=== PATIENT | female | born 1980 | race Caucasian/White ===

== ENCOUNTER 2017-03-08 10:06 | Emergency (ER) | payer BC ==
[~2017-03-08] VITALS: Ht 165.1 cm; Wt 90.3 kg
[~2017-03-08 10:06] MED LIST: PREN-145 OR
[2017-03-08] MEDS ORDERED: SODIUM CHLORIDE 0.9% 1,000 ML IVB ONE (11:20)
[2017-03-08] MEDS ORDERED: PROMETHAZINE HCL 25 MG/ML 1ML IV ONE (11:30)
[2017-03-08 12:27] LABS: Basophils # (auto) 0 uL; Basophils % (auto) 0.6 % (0.0-2.0); Eosinophils # (auto) 0.2 uL; Hematocrit 42.9 % (36.0-46.0); Hemoglobin 14.6 g/dL (12.2-16.2); Lymphocytes % (auto) 26.9 % (10.0-50.0); Mean Corpuscular Hemoglobin 29.7 pg (28.0-32.0); Mean Corpuscular Hgb Conc. 33.9 g/dL (32.0-36.0); Mean Corpuscular Volume 87.5 fL (80.0-100.0); Monocytes # (auto) 0.5 uL; Monocytes % (auto) 6.3 % (0.0-12.0); Neutrophils # (auto) 4.9 uL; Neutrophils % (auto) 64.2 % (37.0-80.0); Nucleated Red Blood Cells % 0.1 %; Platelet Count (auto) 193 10^3/uL (140-450); Red Blood Cells 4.91 10^6/uL (4.0-5.20); Red Cell Distribution Width 13.5 % (11.8-14.3); White Blood Cell 7.6 10^3/uL (4.4-10.8)
[2017-03-08 12:33] LABS: Albumin 3.9 g/dL (3.4-5.0); BUN/Creatinine Ratio 13.6; Potassium 3.7 mmol/L (3.5-5.1)
[2017-03-08 12:36] LABS: Bilirubin, Total 0.6 mg/dL (0.2-1.0); Total Protein 6.9 g/dL (6.4-8.2)
[2017-03-08 13:57] LABS: Urine Bacteria NONE SEEN /hpf (None Seen); Urine Blood Negative /uL (Negative); Urine Hyaline Cast FEW /lpf (0 - 2); Urine Mucus FEW (None Seen); Urine Specific Gravity 1.029 (1.001-1.035); Urine WBC 3 /hpf (0 - 5)
[2017-03-08 15:05] VITALS: BP 135/93
== END 2017-03-08 15:10 | disposition home or self-care (01) ==
LOC: ER 10:06
DX: O21.0 Mild hyperemesis gravidarum (principal); Z88.5 Allergy status to narcotic agent; Z91.018 Allergy to other foods; Z79.899 Other long term (current) drug therapy; Z3A.00 Weeks of gestation of pregnancy not specified
CPT/HCPCS: 36415; 80053; 81001; 84702; 85025; 93005; 94761; 96360; 99285; J7030

== ENCOUNTER → 2017-04-11 | Outpatient (CLI) | payer BC ==
[2017-04-11 12:56] LABS: Basophils # (auto) 0 uL; Basophils % (auto) 0.3 % (0.0-2.0); Eosinophils # (auto) 0.2 uL; Eosinophils % (auto) 1.9 % (0.0-7.0); Hematocrit 43.4 % (36.0-46.0); Hemoglobin 15.1 g/dL (12.2-16.2); Lymphocytes # (auto) 2.2 uL; Lymphocytes % (auto) 26.4 % (10.0-50.0); Mean Corpuscular Hgb Conc. 34.7 g/dL (32.0-36.0); Mean Corpuscular Volume 86.4 fL (80.0-100.0); Monocytes # (auto) 0.5 uL; Monocytes % (auto) 5.7 % (0.0-12.0); Neutrophils # (auto) 5.4 uL; Neutrophils % (auto) 65.7 % (37.0-80.0); Platelet Count (auto) 224 10^3/uL (140-450); Red Blood Cells 5.02 10^6/uL (4.0-5.20); Red Cell Distribution Width 13.8 % (11.8-14.3); White Blood Cell 8.3 10^3/uL (4.4-10.8)
[2017-04-11 13:42] LABS: Alcohol, Urine < 3.0 mg/dL (0-5); Amphetamine Screen, Urine NEGATIVE (NEGATIVE); Barbiturate Scree,Urine NEGATIVE (NEGATIVE); Benzodiazephine Screen, Urine NEGATIVE (NEGATIVE); Cannabinoid Screen, Urine NEGATIVE (NEGATIVE); Cocaine Screen, Urine NEGATIVE (NEGATIVE); Opiate Scree,Urine NEGATIVE (NEGATIVE); Phencyclidine Screen, Urine NEGATIVE (NEGATIVE)
== END | disposition home or self-care (01) ==
LOC: LAB 12:05
PROVIDERS: ATTEND Obstetrics & Gynecology
DX: Z34.80 Encounter for supervision of other normal pregnancy, unspecified trimester (principal); Z20.2 Contact with and (suspected) exposure to infections with a predominantly sexual mode of transmission; Z3A.00 Weeks of gestation of pregnancy not specified
CPT/HCPCS: 36415; 80307; 83036; 84144; 84702; 85025; 86703; 86762; 86850; 86900; 86901; 87086; 87340

== ENCOUNTER → 2017-08-01 | Outpatient (CLI) | payer BC ==
[2017-08-01 12:58] LABS: Basophils # (auto) 0 uL; Basophils % (auto) 0.2 % (0.0-2.0); Eosinophils # (auto) 0.1 uL; Eosinophils % (auto) 1.4 % (0.0-7.0); Hematocrit 38.8 % (36.0-46.0); Hemoglobin 13.3 g/dL (12.2-16.2); Lymphocytes # (auto) 2.2 uL; Lymphocytes % (auto) 22.4 % (10.0-50.0); Mean Corpuscular Hemoglobin 31.2 pg (28.0-32.0); Mean Corpuscular Hgb Conc. 34.2 g/dL (32.0-36.0); Mean Corpuscular Volume 91.3 fL (80.0-100.0); Monocytes # (auto) 0.4 uL; Monocytes % (auto) 4.4 % (0.0-12.0); Neutrophils # (auto) 7.1 uL; Neutrophils % (auto) 71.6 % (37.0-80.0); Platelet Count (auto) 225 10^3/uL (140-450); Red Blood Cells 4.25 10^6/uL (4.0-5.20); Red Cell Distribution Width 13.3 % (11.8-14.3)
== END | disposition home or self-care (01) ==
LOC: LAB 11:40
PROVIDERS: ATTEND Obstetrics & Gynecology
DX: O99.810 Abnormal glucose complicating pregnancy (principal); O23.40 Unspecified infection of urinary tract in pregnancy, unspecified trimester; O09.90 Supervision of high risk pregnancy, unspecified, unspecified trimester; Z3A.00 Weeks of gestation of pregnancy not specified
CPT/HCPCS: 36415; 82951; 85025; 87086

== ENCOUNTER → 2017-10-05 | Outpatient (CLI) | payer BC ==
[~2017-10-05] MED LIST changes: +AMOX250C3 PO; +DOXY10TA OR; +LABE100T PO
[2017-10-05 11:12] LABS: Basophils # (auto) 0 uL; Basophils % (auto) 0.4 % (0.0-2.0); Eosinophils # (auto) 0.3 uL; Eosinophils % (auto) 2.5 % (0.0-7.0); Hemoglobin 12.4 g/dL (12.2-16.2); Lymphocytes # (auto) 2.2 uL; Lymphocytes % (auto) 20.9 % (10.0-50.0); Mean Corpuscular Hemoglobin 31.1 pg (28.0-32.0); Mean Corpuscular Hgb Conc. 34.4 g/dL (32.0-36.0); Mean Corpuscular Volume 90.4 fL (80.0-100.0); Monocytes # (auto) 0.5 uL; Monocytes % (auto) 5.2 % (0.0-12.0); Neutrophils # (auto) 7.3 uL; Platelet Count (auto) 168 10^3/uL (140-450); Red Blood Cells 3.98 10^6/uL (4.0-5.20); Red Cell Distribution Width 13.6 % (11.8-14.3); White Blood Cell 10.3 10^3/uL (4.4-10.8)
[2017-10-06 05:05] LABS: RPR Non Reactive (Non Reactive)
== END | disposition home or self-care (01) ==
LOC: LAB 10:50
PROVIDERS: ATTEND Obstetrics & Gynecology
DX: Z34.83 Encounter for supervision of other normal pregnancy, third trimester (principal); Z3A.37 37 weeks gestation of pregnancy; Z88.5 Allergy status to narcotic agent
CPT/HCPCS: 36415; 85025; 86592; 87081

== ENCOUNTER 2017-10-07 22:38 | Observation (INO) | payer BC ==
[~2017-10-07] VITALS: Ht 170.2 cm; Wt 95.3 kg
[~2017-10-07 22:38] MED LIST changes: -AMOX250C3 PO; -LABE100T PO
[2017-10-08] MEDS ORDERED: AMOX250C3 PO (00:52)
[2017-10-08 00:58] LABS: Basophils # (auto) 0 uL; Basophils % (auto) 0.4 % (0.0-2.0); Eosinophils # (auto) 0.3 uL; Eosinophils % (auto) 2.6 % (0.0-7.0); Hematocrit 34.6 % (36.0-46.0); Hemoglobin 11.6 g/dL (12.2-16.2); Lymphocytes # (auto) 2.9 uL; Lymphocytes % (auto) 25.8 % (10.0-50.0); Mean Corpuscular Hemoglobin 30.4 pg (28.0-32.0); Mean Corpuscular Hgb Conc. 33.6 g/dL (32.0-36.0); Mean Corpuscular Volume 90.5 fL (80.0-100.0); Monocytes # (auto) 0.6 uL; Monocytes % (auto) 5.4 % (0.0-12.0); Neutrophils # (auto) 7.4 uL; Neutrophils % (auto) 65.8 % (37.0-80.0); Platelet Count (auto) 164 10^3/uL (140-450); Red Blood Cells 3.83 10^6/uL (4.0-5.20); White Blood Cell 11.2 10^3/uL (4.4-10.8)
[2017-10-08 01:13] LABS: INR 0.96 (0.9-1.15); Prothrombin Time 10.3 sec (9.27-12.13)
[2017-10-08 01:18] LABS: Albumin 2.5 g/dL (3.4-5.0); BUN/Creatinine Ratio 5.8; Bilirubin, Total 0.3 mg/dL (0.2-1.0); Calcium 7.6 mg/dL (8.5-10.1); Potassium 3.2 mmol/L (3.5-5.1); Total Protein 5.9 g/dL (6.4-8.2); Uric Acid 4.7 mg/dL (2.6-6.0)
[2017-10-08] MEDS ORDERED: LABETALOL HCL 200 MG TAB PO ONE (02:00)
[2017-10-08] MEDS ORDERED: POTASSIUM CHL 20 Meq TABLET PO ONE (02:00)
== END 2017-10-08 03:45 | disposition home or self-care (01) | DRG 782 ==
LOC: LDRP 22:38
PROVIDERS: ADMIT Obstetrics & Gynecology; ATTEND Obstetrics & Gynecology
DX: O13.3 Gestational [pregnancy-induced] hypertension without significant proteinuria, third trimester (principal); O09.523 Supervision of elderly multigravida, third trimester; O62.9 Abnormality of forces of labor, unspecified; Z3A.36 36 weeks gestation of pregnancy
CPT/HCPCS: 36415; 59025; 80053; 81002; 84550; 85025; 85610; 85730; 86850; 86900; 86901; G0378

== ENCOUNTER 2017-10-13 12:20 | Observation (INO) | payer BC ==
[~2017-10-13 12:20] MED LIST changes: +AMOX250C3 PO
[2017-10-13 13:36] LABS: Basophils # (auto) 0 uL; Basophils % (auto) 0.4 % (0.0-2.0); Eosinophils # (auto) 0.4 uL; Eosinophils % (auto) 4.3 % (0.0-7.0); Hematocrit 37.3 % (36.0-46.0); Hemoglobin 12.5 g/dL (12.2-16.2); Lymphocytes # (auto) 2.2 uL; Lymphocytes % (auto) 25.4 % (10.0-50.0); Mean Corpuscular Hemoglobin 30.4 pg (28.0-32.0); Mean Corpuscular Hgb Conc. 33.4 g/dL (32.0-36.0); Mean Corpuscular Volume 90.9 fL (80.0-100.0); Monocytes # (auto) 0.5 uL; Monocytes % (auto) 5.7 % (0.0-12.0); Neutrophils # (auto) 5.6 uL; Neutrophils % (auto) 64.2 % (37.0-80.0); Platelet Count (auto) 184 10^3/uL (140-450); White Blood Cell 8.8 10^3/uL (4.4-10.8)
[2017-10-13 13:52] LABS: INR 0.94 (0.9-1.15); Prothrombin Time 10.1 sec (9.27-12.13)
[2017-10-13 14:01] LABS: Albumin 2.6 g/dL (3.4-5.0); BUN/Creatinine Ratio 8.7; Bilirubin, Total 0.3 mg/dL (0.2-1.0); Calcium 7.6 mg/dL (8.5-10.1); Potassium 3.6 mmol/L (3.5-5.1); Total Protein 6.2 g/dL (6.4-8.2); Uric Acid 4.4 mg/dL (2.6-6.0)
[2017-10-13 14:10] LABS: Urine Bacteria FEW /hpf (None Seen); Urine Blood Negative /uL (Negative); Urine Specific Gravity 1.004 (1.001-1.035); Urine WBC 1 /hpf (0 - 5)
== END 2017-10-13 14:50 | disposition home or self-care (01) | DRG 781 ==
LOC: LDRP 12:20
PROVIDERS: ADMIT Specialist; ATTEND Specialist
DX: O13.3 Gestational [pregnancy-induced] hypertension without significant proteinuria, third trimester (principal); O26.893 Other specified pregnancy related conditions, third trimester; O09.523 Supervision of elderly multigravida, third trimester; R51 Headache; N89.8 Other specified noninflammatory disorders of vagina; Z88.9 Allergy status to unspecified drugs, medicaments and biological substances; Z3A.37 37 weeks gestation of pregnancy
CPT/HCPCS: 36415; 59025; 80053; 81001; 81002; 84550; 85025; 85610; 85730; G0378

== ENCOUNTER 2017-10-15 05:29 | Inpatient (IN) | payer BC ==
[~2017-10-15] VITALS: Ht 170.2 cm; Wt 91.6 kg
[2017-10-15] MEDS ORDERED: LACT. RINGERS/OXYTOCIN 20UNITS 1,000 ML IV SCH (05:46)
[2017-10-15] MEDS ORDERED: DERMOPLAST 60ML BOTTLE TOP PRN (06:00)
[2017-10-15] MEDS ORDERED: NALBUPHINE HCL 10 MG/1ml INJECTION IV PRN (06:00)
[2017-10-15] MEDS ORDERED: LIDOCAINE 2% (LOCAL ANESTH.) PF 5ml SDV ID ONE (06:00)
[2017-10-15] MEDS ORDERED: CARBOPROST TROMETHAMINE 250 MCG/1ML VIAL IM PRN (06:00)
[2017-10-15] MEDS ORDERED: PENICILLIN G POT 5MILLION UNIT VIAL ONE (06:00)
[2017-10-15] MEDS ORDERED: PHISODERM TOP SOLN 240ML BTL TOP PRN (06:00)
[2017-10-15] MEDS ORDERED: WITCH HAZEL-GLYCERIN PAD TOP PRN (06:00)
[2017-10-15] MEDS ORDERED: METHYLERGONOVINE MALEATE 0.2 MG/ML AMP IM PRN (06:00)
[2017-10-15] MEDS ORDERED: PENICILLIN G POT 5MIL/D5 50ML 50 ML IV ONE ×2 (06:02→06:30)
[2017-10-15] MEDS ORDERED: LABE100T PO (06:03)
[2017-10-15 06:40] LABS: Basophils # (auto) 0 uL; Basophils % (auto) 0.4 % (0.0-2.0); Eosinophils # (auto) 0.3 uL; Eosinophils % (auto) 2.9 % (0.0-7.0); Hematocrit 35.3 % (36.0-46.0); Hemoglobin 12.1 g/dL (12.2-16.2); Lymphocytes # (auto) 2.6 uL; Lymphocytes % (auto) 24.8 % (10.0-50.0); Mean Corpuscular Hemoglobin 31.2 pg (28.0-32.0); Mean Corpuscular Hgb Conc. 34.3 g/dL (32.0-36.0); Monocytes # (auto) 0.6 uL; Monocytes % (auto) 5.6 % (0.0-12.0); Neutrophils # (auto) 7.1 uL; Neutrophils % (auto) 66.3 % (37.0-80.0); Platelet Count (auto) 185 10^3/uL (140-450); Red Blood Cells 3.88 10^6/uL (4.0-5.20); Red Cell Distribution Width 14.1 % (11.8-14.3); White Blood Cell 10.6 10^3/uL (4.4-10.8)
[2017-10-15] MEDS ORDERED: DIPHENOXYLATE W/ATROPINE 2.5 MG TAB PO PRN (06:45)
[2017-10-15] MEDS ORDERED: ONDANSETRON HCL 4 MG/2 ML VIAL IV PRN (06:45)
[2017-10-15 06:52] LABS: INR 0.93 (0.9-1.15); Partial Thromboplastin Time 25.4 sec (23.78-33.04)
[2017-10-15 06:58] LABS: Urine Bacteria NONE SEEN /hpf (None Seen); Urine Blood Negative /uL (Negative); Urine Specific Gravity 1.011 (1.001-1.035); Urine WBC 1 /hpf (0 - 5)
[2017-10-15 07:03] LABS: Albumin 2.7 g/dL (3.4-5.0); BUN/Creatinine Ratio 7.2; Bilirubin, Total 0.4 mg/dL (0.2-1.0); Calcium 8.2 mg/dL (8.5-10.1); Potassium 3.6 mmol/L (3.5-5.1); Total Protein 6.1 g/dL (6.4-8.2)
[2017-10-15 07:58] LABS: Protein, Urine 6.7 mg/dL (0.0-11.9)
[2017-10-15 07:59] LABS: 24 Hr. Total Protein, Urine 140.7 mg/24 Hr (<149.1)
[2017-10-15] MEDS ORDERED: PENICILLIN G POTASSIUM 2,500,000 UNITS in D5W 5% 50 ML IV SCH (10:00)
[2017-10-15] MEDS: LACTATED RINGER'S 1,000 ML IV SCH ×2 (10:15→13:00)
[2017-10-15] MEDS ORDERED: PROMETHAZINE HCL 25 MG/ML 1ML ONE (11:22)
[2017-10-15] MEDS ORDERED: fentaNYL W ROPIVACAINE 150 ML EPI SCH (12:45)
[2017-10-15] MEDS ORDERED: NALOXONE HCL 0.4 MG/ML VIAL IV ONE (12:45)
[2017-10-15] MEDS ORDERED: ePHEDrine SULFATE 50 MG/ML AMP IV ONE (12:45)
[2017-10-15] MEDS ORDERED: fentaNYL CITRATE 100 MCG/2 ML VL IV ONE (12:45)
[2017-10-15] MEDS ORDERED: LIDOCAINE HCL 2 %PF INJ 10ML AMP IJ ONE (12:45)
[2017-10-15] MEDS: ceFAZolin 1GM/50ML 50 ML IV SCH ×2 (14:00→21:58)
[2017-10-15 16:00] VITALS: BP 122/95
[2017-10-15 19:15] VITALS: BP 123/86
[2017-10-15 23:00] VITALS: BP 132/77
[2017-10-15] MEDS ORDERED: TETANUS-DIPTH-ACEL PERTUSSIS 0.5ML SYRG IM ONE (23:30)
[2017-10-16 03:00] VITALS: BP 115/55
[2017-10-16 05:06] LABS: RPR Non Reactive (Non Reactive)
[2017-10-16] MEDS: ceFAZolin 1GM/50ML 50 ML IV SCH (05:30)
[2017-10-16 07:19] VITALS: BP 124/93
[2017-10-16] MEDS ORDERED: IBUPROFEN 600 MG TAB PO PRN (07:45)
[2017-10-16] MEDS ORDERED: ACETAMINOPHEN 325 MG TAB PO PRN (07:45)
[2017-10-16 11:00] VITALS: BP 122/84
[2017-10-16 15:00] VITALS: BP 128/72
== END 2017-10-16 16:10 | disposition home or self-care (01) | DRG 774 ==
LOC: LDRP 05:29
PROVIDERS: ADMIT Obstetrics & Gynecology; ATTEND Obstetrics & Gynecology
PROC: 10E0XZZ Delivery of Products of Conception, External Approach (ICD-10-PCS; principal; 2017-10-15)
DX: O42.92 Full-term premature rupture of membranes, unspecified as to length of time between rupture and onset of labor (principal); O72.1 Other immediate postpartum hemorrhage; O99.824 Streptococcus B carrier state complicating childbirth; Z37.0 Single live birth; Z88.5 Allergy status to narcotic agent; Z3A.37 37 weeks gestation of pregnancy
CPT/HCPCS: 36415; 59025; 59409; 80053; 81001; 84156; 85025; 85610; 85730; 86592; 86850; 86900; 86901; 90715; 96361; 96365; 96366; 96367; 96372; 96375; J0690; J2001; J2540; J2590; J3010; J7060